=== PATIENT | male | born 1995 ===

== ENCOUNTER 2022-09-05 21:50 | Inpatient (IN) | payer BC, MEDICAID, SELFPAY ==
[2022-09-05 21:58] VITALS: BP 133/81; PULSE 63; RESP 18; TEMP 36.6; O2SAT 99
[2022-09-05 22:00] VITALS: BP 133/81; PULSE 63; RESP 18; TEMP 36.6; O2SAT 99; BMI 22.3
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
[2022-09-05] MEDS: nicotine 2 mg Gum BUCCAL (23:39)
[2022-09-06 06:00] VITALS: BP 126/76; PULSE 63; RESP 16; TEMP 36.9; O2SAT 98
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
[2022-09-06 14:00] VITALS: BP 121/73; PULSE 99; RESP 16; TEMP 36.6; O2SAT 99
[2022-09-06] MEDS: nicotine 2 mg Gum BUCCAL (19:24)
[2022-09-06 21:56] VITALS: BP 130/87; PULSE 66; RESP 17; TEMP 36.7; O2SAT 100
[2022-09-07] MEDS: nicotine 2 mg Gum BUCCAL ×5 (02:23→19:47)
[2022-09-07 06:00] VITALS: BP 145/95; PULSE 96; RESP 16; O2SAT 98
[2022-09-07 14:00] VITALS: BP 132/82; PULSE 67; RESP 20; TEMP 36.4; O2SAT 98
--- NOTE | 2022-09-07 19:06 | W.PM.NPUPNS ---
Subjective NPU Subjective: Patient presented today reporting that he is feeling fine and getting the break that he needed given his stress level. He continues to deny any desire or need to initiate a medication. We discussed him being a voluntary patient and the possibility of discharge tomorrow. We discussed making sure that we identified any risk at the house. Otherwise he is clifford for safety and reporting that he feels safe to return home. Mental Status Exam MSE Comments: This is a slender white male in hospital scrubs with adequate grooming and eye contact.? No abnormal movements except for mild psychomotor retardation.? Cooperative with exam and mild distress.? Speech was slightly decreased rate and volume.? Mood described as better, affect congruent and odd.? Thought process organized.? Thought content: Patient denied suicidal or homicidal ideation but does report having those thoughts leading to this hospitalization, there were no delusions reported or noted, he endorsed auditory but denied current visual hallucinations.? Attention and concentration were intact and memory was mostly reliable but none were formally tested.? He is alert and oriented x3.? Insight and judgment limited impulse control limited. Vitals/I&O/Wt Last Vital Signs Temp 97.5 F L 09/07/22 14:00 Pulse 67 09/07/22 14:00 Resp 20 H 09/07/22 14:00 BP 132/82 09/07/22 14:00 Pulse Ox 98 09/07/22 14:00 O2 Del Method Room Air 09/07/22 06:00 Weight last 48 hrs Weight 72.575 kg A&P Assessment and plan (1) Adjustment disorder with mixed disturbance of emotions and conduct: (2) Partner relational problem: (3) PTSD (post-traumatic stress disorder): Plan This is a 27-year-old white male with a reported history of being on multiple medications but denying a lot of symptoms with some odd affect reporting that he was overwhelmed and other people are calling him depressed reporting he needs to be connected with therapy which she has never done but is not interested in medications because he had a bad reaction to everyone's been tried. 1.? Continue off of medication. 2.? Encourage individual, group and milieu therapy. 3.? Continue every 15 minute checks for safety. 4.? Encourage sober living treatment after discharge at the highest level of care to which he is willing to commit. 5. Attempt to get some collateral information as it seems for all the medications he has tried his history of symptoms seems like a disconnect. Involuntary Hold Information 96 Hour Hold: 96 Hour Involuntary Admission: No Attestations NPU Medical Necessity Statement*: Inpatient hospitalization is medically necessary and the clinically appropriate intervention at this time.? We will monitor/initiate medications and make changes as indicated.?Likely length of stay 1-3 days Coding Level of Care Code Acute Code for Chg Fwd Diagnoses Adjustment disorder with mixed disturbance of emotions and conduct F43.25 Partner relational problem Z63.0 PTSD (post-traumatic stress disorder) F43.10
[2022-09-07 19:46] VITALS: BP 121/78; PULSE 78; RESP 16; TEMP 36.6; O2SAT 100
[2022-09-08 06:00] VITALS: BP 127/83; PULSE 69; RESP 18; TEMP 36.7; O2SAT 98; BMI 22.3
--- NOTE | 2022-09-08 11:41 | PC.NURSE ---
significant other called unit, verified safety plan, stated there were no guns in the house, patient had no access to guns
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
[2022-09-08 12:02] VITALS: BP 127/83; PULSE 69; RESP 18; TEMP 36.7; O2SAT 98
== END 2022-09-08 14:23 | disposition home or self-care (01) | DRG 882 ==
PROVIDERS: Admitting Provider Psychiatry & Neurology Psychiatry; Visit Provider Psychiatry & Neurology Psychiatry
DX: F43.25 Adjustment disorder with mixed disturbance of emotions and conduct (principal); R45.851 Suicidal ideations; F43.10 Post-traumatic stress disorder, unspecified; Z63.0 Problems in relationship with spouse or partner; Z62.812 Personal history of neglect in childhood
CPT/HCPCS: 97150; 97165